=== PATIENT | male | born 1990 | race Caucasian/White ===

== ENCOUNTER 2018-01-08 05:15 | Observation (INO) | payer BC, OTHER ==
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
[2018-01-08] MEDS ORDERED: Sodium Chloride 0.9% 1,000 ML IV SCH ×2 (05:30→07:00)
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
[2018-01-08] MEDS ORDERED: Acetaminophen/oxyCODONE 325-5 MG Tab PO PRN (06:51)
[2018-01-08] MEDS ORDERED: HYDROmorphone 0.5 MG/0.5 ML SYRINGE IVPUSH PRN (06:51)
[2018-01-08] MEDS ORDERED: Acetaminophen 325 MG Tab PO PRN (06:51)
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
--- NOTE | 2018-01-08 15:44 | CT ---
CT chest Technique: Multiple axial sections through the chest were obtained. Intravenous contrast was utilized. Comparison: No prior chest CT. Findings: Mediastinum and hilar regions appear within normal limits. No pericardial thickening is seen. Lungs are clear with no evidence of pulmonary contusion. No pleural effusions or pneumothorax is seen. Bone window settings were reviewed which show no acute osseous abnormality. There is some irregularity within the sternum believed to be artifact from motion. Impression: 1. Nothing acute is appreciated on CT study of the chest. Diagnostic code #1 Agree with preliminary report issued by [email or web address] ([email or web address] preliminary report dictated on 01/08/18, 7:15 AM Central Time) CT abdomen and pelvis Technique: Multiple axial sections were obtained from above the dome of the diaphragm inferiorly through the pubic symphysis. Intravenous contrast was utilized. No oral contrast has been given. Delayed images also obtained through the bladder. Comparison: No previous CT abdomen or pelvis exam. Findings: Liver shows no focal abnormality. Gallbladder contains no calcified gallstones. Spleen appears within normal limits. Adrenal glands show no nodule. Pancreas is within normal limits. Kidneys show symmetric contrast enhancement without hydronephrosis or mass. Aorta shows no aneurysmal dilatation. No retroperitoneal adenopathy or mesenteric abnormalities are seen. No pelvic mass or adenopathy is seen. No free fluid or inflammatory change is seen within the abdomen or pelvis. Delayed images show contrast within both distal ureters as well as contrast being seen to extend into the bladder. Bone window settings were reviewed which show no acute osseous abnormality. Impression: 1. Nothing acute is seen on CT study of the abdomen and pelvis. Diagnostic code #1 Agree with preliminary report issued by [email or web address] ([email or web address] preliminary report dictated on 01/08/18, 7:13 AM Central Time)
--- NOTE | 2018-01-08 15:44 | CT ---
Head CT Technique: Multiple axial sections through the brain were obtained. Limitations: Severe motion artifact obscures details within the mid and base cuts. Findings: Ventricles along with basal cisterns and sulci over the convexities are within normal limits. No abnormal parenchymal densities are seen. No evidence of intracranial hemorrhage. No midline shift or mass effect is seen. No discrete calvarial abnormality is seen. Impression: 1. Significant motion artifact limiting details, no gross intracranial abnormality is appreciated. If patient has persistent intracranial symptoms, repeat study could then be considered. Diagnostic code #2 I agree with preliminary report issued by [facility] ([facility] preliminary report dictated on 01/08/18, 6:58 AM Central Time)
--- NOTE | 2018-01-08 15:44 | CT ---
CT cervical spine Technique: Multiple axial sections were obtained from above C1 inferiorly to the bottom of T1. Reconstructed sagittal and coronal images were reviewed. Comparison: No prior cervical spine imaging. Findings: Posterior skull base is intact. Vertebral body heights and disc spaces are maintained. Vertebral bodies and posterior arches are intact with no fracture. No bony central or bony neural foraminal stenosis is seen. No abnormal subluxation is seen on the reconstructed sagittal images. Impression: 1. Nothing acute is seen on CT study of the cervical spine. Diagnostic code #1 Agree with preliminary report issued by [facility] ([facility] preliminary report dictated on 01/08/18, 7:12 AM Central Time)
--- NOTE | 2018-01-08 15:44 | CR ---
Chest: Portable supine view of the chest was obtained. Comparison: No prior chest x-ray. Heart size and mediastinum are within normal limits. Lungs are clear. No discrete bony abnormality is appreciated. Impression: 1. Nothing acute is seen on portable supine chest x-ray. Diagnostic code #1
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
== END 2018-01-08 17:30 | disposition left against medical advice (07) ==
LOC: JD.ED 05:15 → JD.MS 07:37
PROVIDERS: ADMIT Surgery; ATTEND Surgery
DX: T07.XXXA Unspecified multiple injuries, initial encounter (principal); F10.920 Alcohol use, unspecified with intoxication, uncomplicated; F17.210 Nicotine dependence, cigarettes, uncomplicated; V89.2XXA Person injured in unspecified motor-vehicle accident, traffic, initial encounter; Y90.0 Blood alcohol level of less than 20 mg/100 ml
CPT/HCPCS: 36415; 70450; 70450-26; 71045; 71045-26; 71260; 71260-26; 72125; 72125-26; 74177; 74177-26; 80053; 80306; 81001; 85025; 85610; 85730; 96360; 96361; 99285; 99285-25; A9270-GY; G0378; G0480; J7040